=== PATIENT | female | born 1995 | race Caucasian/White ===

== ENCOUNTER 2017-02-19 10:44 | Emergency (ER) | payer SELFPAY ==
[2017-02-19] MEDS ORDERED: CLINDAMYCIN 150 MG CAP PO ONE (11:19)
[2017-02-19] MEDS ORDERED: IBUPROFEN 600 MG TABLET PO ONE (11:19)
--- NOTE | 2017-02-19 11:19 | Emergency Department Record ---
History of Present Illness - General Chief complaint: Abscess Stated complaint: BOIL IN ARM PIT AREA Time Seen by Provider: 02/19/17 11:11 Source: Patient Mode of Arrival: Ambulatory Limitations: No limitations - History of Present Illness Initial comments: 21 yo female presents with a tender swollen area in the axilla for one week. She has had prior abscess in the past. No fevers or chills. No drainage yet. No known history of MRSA. No other active abscesses currently. MD complaint: Abscess/boil Onset/Timin -: Week(s) Severity: Moderate Severity scale (1-10): 7 Quality: Sharp Consistency: Constant Improves with: None Worsens with: Palpation Context: None Associated symptoms: Denies other symptoms Treatments Prior to Arrival: None - Related Data Previous Rx's Medication Instructions Recorded Clindamycin Palmitate HCl [Cleocin 300 mg PO TID #180 ml 02/19/17 Palmitate] Hydrocodone/APAP Elixir [[place] 7.5 ml PO TID PRN #70 ml 02/19/17 7.5mg/325mg/15ml] Allergies Allergy/AdvReac Type Severity Reaction Status Date / Time cefdinir [From Omnicef] Allergy HIVES Verified 02/19/17 10:57 Travel Screening - Travel/Exposure Within Last 30 Days Have you traveled within the last 30 days?: No Review of Systems Constitutional: Denies: Chills, Fever, Malaise, Weakness Eyes: Denies: Eye discharge ENT: Denies: Congestion, Throat pain Respiratory: Denies: Cough, Dyspnea, Hemoptysis, Stridor, Wheezes Cardiovascular: Denies: Chest pain, Palpitations, Syncope Gastrointestinal: Denies: Abdominal pain, Nausea, Vomiting Genitourinary: Denies: Dysuria, Urgency Musculoskeletal: Denies: Arthralgia, Back pain, Joint swelling, Myalgia Skin: Reports: As per HPI, Change in color, Lesions. Denies: Bruising Neurological: Denies: Confusion, Headache Psychiatric: Denies: Anxiety Hematological/Lymphatic: Denies: Easy bleeding, Easy bruising, Swollen glands Past Medical History - SOCIAL HISTORY Smoking Status: Current every day smoker Alcohol Use: Occassional Drug Use: None - RESPIRATORY Hx Respiratory Disorders: No - CARDIOVASCULAR Hx Cardio Disorders: No - NEURO Hx Neuro Disorders: No - GI Hx GI Disorders: No - Hx Genitourinary Disorders: No - ENDOCRINE Hx Endocrine Disorders: No - MUSCULOSKELETAL Hx Musculoskeletal Disorders: No - PSYCH Hx Psych Problems: No - HEMATOLOGY/ONCOLOGY Hx Hematology/Oncology Disorders: No Family Medical History Any Significant Family History?: No Physical Exam - General General Appearance: Alert, Oriented x3, Cooperative, No acute distress Limitations: No limitations - Head Head exam: Normal inspection - Eye Eye exam: Normal appearance - ENT ENT exam: Normal exam Ear exam: Normal external inspection Nasal Exam: Normal inspection - Neck Neck exam: Normal inspection - Respiratory Respiratory exam: Normal lung sounds bilaterally. negative: Respiratory distress - Cardiovascular Cardiovascular Exam: Regular rate, Normal rhythm, Normal heart sounds - GI/Abdominal GI/Abdominal exam: negative: Tenderness - Rectal Rectal exam: Deferred - exam: Deferred - Extremities Extremities exam: Full ROM. negative: Normal inspection, Joint swelling Image of Full Body: 1 - 3cm abscess with surrounding erythema about 10cm below axilla, mild axilla erythema without abscesses or tenderness - Back Back exam: Reports: Normal inspection - Neurological Neurological exam: Alert, Normal gait, Oriented X3 - Psychiatric Psychiatric exam: Normal affect, Normal mood - Skin Skin exam: Erythema Type of lesion: Abscess Course Vital Signs 02/19/17 10:53 Temperature 98.3 F Pulse Rate 93 H Respiratory 18 Rate Blood Pressure 142/66 Pulse Ox 100 - Reevaluation(s) Reevaluation #1: The patient has an abscess below the axilla I recommended drainage. She has had this prior and is aware of benefits and risks She agrees Given the surrounding erythema Clindamycin provided as well. Procedure: I and D of superficial abscess Betadine prep Lidocaine 1% with Epi 3ml 11 blade 1cm incision Pus expressed. Culture obtained The loculations were broken The pus was expressed until resolved The cavity irrigated 1/4 inch drain placed with dressing Tolerated well DC to return in 48 hours. 02/19/17 11:21 Disposition Disposition: Discharge Clinical Impression: Cutaneous abscess Qualifiers: Site of cutaneous abscess: other site Qualified Code(s): L02.818 - Cutaneous abscess of other sites Disposition: Home, Self-Care Condition: (1) Good Instructions: Abscess Incision and Drainage (ED), Abscess (ED) Additional Instructions: Return if you have fever, uncontrolled pain, or any new concerns Take the Clindamycin as directed Prescriptions: Clindamycin Palmitate HCl [Cleocin Palmitate] 300 mg PO TID #180 ml Hydrocodone/APAP Elixir [[place] 7.5mg/325mg/15ml] 7.5 ml PO TID PRN #70 ml PRN Reason: Pain - General Forms: Patient Portal Access Time of Disposition: 11:40
== END 2017-02-19 11:50 | disposition home or self-care (01) ==
LOC: ER 10:44
DX: L03.112 Cellulitis of left axilla (principal)
CPT/HCPCS: 10060; 99284

== ENCOUNTER 2017-02-21 18:30 | Emergency (ER) | payer MEDICAID ==
--- NOTE | 2017-02-21 19:18 | Emergency Department Record ---
History of Present Illness - General Chief Complaint: Wound, check Stated Complaint: RE-CHECK/DRAIN REMOVAL Time Seen by Provider: 02/21/17 19:16 Source: Patient Mode of arrival: Ambulatory Limitations: No limitations - History of Present Illness Initial Comments: 21 yo female presents to ED for re-evaluation of her previously drained cutaneous abscess of the left axilla 2 days ago. Patient reports that she was unable to fill her prescription for Clindamycin due to cost, denies fevers, chills, ore recent illness. Patient denies health problems at her baseline. MD Complaint: Wound re-check Onset/Timin -: Days(s) Initial Visit For: Abscess Returns Today for: Wound recheck Symptoms Since Prior Visit: No new symptoms Treatments Prior to Arrival: Given antibiotics on initial visit - Related Data Previous Rx's Medication Instructions Recorded Hydrocodone/APAP Elixir [[place] 7.5 ml PO TID PRN #70 ml 02/19/17 7.5mg/325mg/15ml] Sulfamethoxazole/Trimethoprim 1 each PO BID #20 tablet 02/21/17 [Bactrim Ds Tablet] Allergies Allergy/AdvReac Type Severity Reaction Status Date / Time cefdinir [From Omnicef] Allergy HIVES Verified 02/19/17 10:57 Review of Systems Constitutional: Denies: Chills, Fever, Malaise, Night sweats Eyes: Denies: Eye discharge, Eye pain ENT: Denies: Congestion, Ear pain, Epistaxis Respiratory: Denies: Cough, Dyspnea Cardiovascular: Denies: Chest pain, Dyspnea on exertion Endocrine: Denies: Fatigue, Heat or cold intolerance Gastrointestinal: Denies: Abdominal pain, Nausea, Vomiting Genitourinary: Denies: Dysuria, Frequency, Hematuria, Incontinence Musculoskeletal: Denies: Arthralgia, Back pain, Gout, Joint swelling Skin: Reports: Other (draining wound left axilla with packing in place). Denies : Bruising, Change in color, Change in hair/nails Neurological: Denies: Abnormal gait, Confusion, Headache, Seizure Psychiatric: Denies: Anxiety Hematological/Lymphatic: Denies: Anemia, Blood Clots Past Medical History - SOCIAL HISTORY Smoking Status: Current every day smoker Drug Use: None - RESPIRATORY Hx Respiratory Disorders: No - CARDIOVASCULAR Hx Cardio Disorders: No - NEURO Hx Neuro Disorders: No - GI Hx GI Disorders: No - Hx Genitourinary Disorders: No - ENDOCRINE Hx Endocrine Disorders: No - MUSCULOSKELETAL Hx Musculoskeletal Disorders: No - PSYCH Hx Psych Problems: No - HEMATOLOGY/ONCOLOGY Hx Hematology/Oncology Disorders: No Physical Exam - General General Appearance: Alert, Oriented x3, Cooperative, No acute distress Limitations: No limitations - Head Head exam: Atraumatic, Normocephalic, Normal inspection Head exam detail: negative: Abrasion, Contusion, Campbell's sign, General tenderness, Hematoma, Laceration - Eye Eye exam: Normal appearance. negative: Conjunctival injection, Periorbital swelling, Periorbital tenderness, Scleral icterus - ENT Ear exam: negative: Auricular hematoma, Auricular trauma Nasal Exam: negative: Active bleeding, Discharge, Dried blood, Foreign body Mouth exam: negative: Drooling, Laceration, Muffled voice, Tongue elevation Throat exam: Normal inspection. negative: Tonsillar erythema, Tonsillomegaly, R peritonsillar mass, L peritonsillar mass - Neck Neck exam: Normal inspection. negative: Meningismus, Tenderness - Respiratory Respiratory exam: Normal lung sounds bilaterally. negative: Rales, Respiratory distress, Rhonchi, Stridor - Cardiovascular Cardiovascular Exam: Regular rate, Normal rhythm, Normal heart sounds - GI/Abdominal GI/Abdominal exam: Soft. negative: Rebound, Rigid, Tenderness - Rectal Rectal exam: Deferred - exam: Deferred - Extremities Extremities exam: Normal inspection. negative: Pedal edema, Tenderness - Back Back exam: Denies: CVA tenderness (R), CVA tenderness (L) - Neurological Neurological exam: Alert, Normal gait, Oriented X3 - Psychiatric Psychiatric exam: Normal affect, Normal mood - Skin Skin exam: Normal color, Other (Draining wound to the left chest wall just infrior to the axilla). negative: Abrasion Type of lesion: negative: abrasion Course - Reevaluation(s) Reevaluation #1: 02/21/17 19:22 Packing removed from the wound, no surrounding erythema, induration, or residual fluctuance is present on examination. Patient appears stable for discharge on Bactrim for her symptoms. Patient understands all instructions and appears stable for discharge at this time. Disposition Disposition: Discharge Clinical Impression: Abscess of skin Qualifiers: Site of cutaneous abscess: trunk Site of cutaneous abscess of trunk: unspecified site Qualified Code(s): L02.219 - Cutaneous abscess of trunk, unspecified Disposition: Home, Self-Care Condition: (2) Stable Instructions: Abscess (ED), Abscess Incision and Drainage (ED) Additional Instructions: Return to ED if your symptoms worsen or if you have any concern. Bactrim as directed. Follow-up with your family doctor in 3-5 days as directed. Prescriptions: Sulfamethoxazole/Trimethoprim [Bactrim Ds Tablet] 1 each PO BID #20 tablet Forms: Patient Portal Access Time of Disposition: 19:18
[2017-02-21] MEDS ORDERED: TMP/SMZ 160MG/800MG TAB PO ONE (19:27)
== END 2017-02-21 19:37 | disposition home or self-care (01) ==
LOC: ER 18:30
DX: L03.112 Cellulitis of left axilla (principal)
CPT/HCPCS: 99282

== ENCOUNTER 2017-03-16 10:48 | Emergency (ER) | payer MEDICAID ==
[2017-03-16 11:39] LABS: BASO % 0.4 % (0-6); EOS % 2.7 % (0-6); GRAN % 63.3 % (47-80); HEMATOCRIT 40.5 % (35.0-47.0); HEMOGLOBIN 13.1 gm/dl (11.6-16.0); LYMPH % 25.8 % (16-45); MEAN CELL VOLUME 87.5 fl (81-97); MEAN CORPUSCULAR HEMOGLOBIN 28.3 pg (27-33); MEAN CORPUSCULAR HGB CONC 32.3 g/dl (32-36); MEAN PLATELET VOLUME 10.4 fl (7.4-10.4); MONO % 7.8 % (0-9); PLATELET COUNT 211 K/uL (130-400); RED BLOOD COUNT 4.63 M/uL (3.80-5.40); RED CELL DISTRIBUTION WIDTH 13.5 % (11.5-14.5); WHITE BLOOD COUNT W/O DIFF 5.6 K/uL (4.2-12.2)
[2017-03-16 11:40] LABS: URINE APPEARANCE CLEAR; URINE BILIRUBIN NEGATIVE (NEGATIVE); URINE BLOOD TRACE-I (NEGATIVE); URINE COLOR YELLOW; URINE GLUCOSE (UA) NEGATIVE (NEGATIVE); URINE KETONE NEGATIVE (NEGATIVE); URINE LEUKOCYTE ESTERASE SMALL (NEGATIVE); URINE NITRITE NEGATIVE (NEGATIVE); URINE PROTEIN NEGATIVE (NEGATIVE); URINE UROBILINOGEN 0.2 E.U./dL (0.20 - 1.00)
--- NOTE | 2017-03-16 11:40 | Emergency Department Record ---
History of Present Illness - General Chief Complaint: Abdominal Pain Stated Complaint: ABD PAIN Time Seen by Provider: 03/16/17 11:06 Source: Patient Mode of Arrival: Ambulatory Limitations: No limitations - History of Present Illness Initial Comments: pt c/o nausea and cramping for 3 days. pt doesnt know when her lmp was. she states they are irregular. MD Complaint: Abdominal pain Onset/Timin -: Days(s) Location: LLQ, RLQ Radiation: Back Quality: Cramping Consistency: Intermittent Improves With: Nothing Worsens With: Nothing Associated Symptoms: Nausea - Related Data LMP (females 10-50): Unknown Patient : (unsure) Previous Rx's Medication Instructions Recorded Sulfamethoxazole/Trimethoprim 1 each PO BID #6 tablet 03/16/17 [Bactrim Ds Tablet] Allergies Allergy/AdvReac Type Severity Reaction Status Date / Time cefdinir [From Omnicef] Allergy Severe HIVES Verified 03/16/17 10:58 Travel Screening - Travel/Exposure Within Last 30 Days Have you traveled within the last 30 days?: No Review of Systems Reviewed: No additional complaints except as noted below Constitutional: Reports: As per HPI. Denies: Chills, Fever, Malaise, Night sweats, Weakness, Weight change Eyes: Reports: As per HPI. Denies: Eye discharge, Eye pain, Photophobia, Vision change ENT: Reports: As per HPI. Denies: Congestion, Dental pain, Ear pain, Epistaxis , Hearing loss, Throat pain Respiratory: Reports: As per HPI. Denies: Cough, Dyspnea, Hemoptysis, Stridor, Wheezes Cardiovascular: Reports: As per HPI. Denies: Arrhythmia, Chest pain, Dyspnea on exertion, Edema, Murmurs, Orthopnea, Palpitations, Paroxysmal nocturnal dyspnea, Rheumatic Fever, Syncope Endocrine: Reports: As per HPI. Denies: Fatigue, Heat or cold intolerance, Polydipsia, Polyuria Gastrointestinal: Reports: As per HPI. Denies: Abdominal pain, Constipation, Diarrhea, Hematemesis, Hematochezia, Melena, Nausea, Vomiting Genitourinary: Reports: As per HPI. Denies: Abnormal menses, Discharge, Dyspareunia, Dysuria, Frequency, Hematuria, Incontinence, Retention, Urgency Musculoskeletal: Reports: As per HPI. Denies: Arthralgia, Back pain, Gout, Joint swelling, Myalgia, Neck pain Skin: Reports: As per HPI. Denies: Bruising, Change in color, Change in hair/ nails, Lesions, Pruritus, Rash Neurological: Reports: As per HPI. Denies: Abnormal gait, Confusion, Headache, Numbness, Paresthesias, Seizure, Tingling, Tremors, Vertigo, Weakness Psychiatric: Reports: As per HPI. Denies: Anxiety, Auditory hallucinations, Depression, Homicidal thoughts, Suicidal thoughts, Visual hallucinations Hematological/Lymphatic: Reports: As per HPI. Denies: Anemia, Blood Clots, Easy bleeding, Easy bruising, Swollen glands Past Medical History - SOCIAL HISTORY Smoking Status: Current every day smoker Alcohol Use: Rare Drug Use: None - RESPIRATORY Hx Respiratory Disorders: No - CARDIOVASCULAR Hx Cardio Disorders: No - NEURO Hx Neuro Disorders: No - GI Hx GI Disorders: No - Hx Genitourinary Disorders: No - ENDOCRINE Hx Endocrine Disorders: No - MUSCULOSKELETAL Hx Musculoskeletal Disorders: No - PSYCH Hx Psych Problems: No - HEMATOLOGY/ONCOLOGY Hx Hematology/Oncology Disorders: No Family Medical History Any Significant Family History?: No Physical Exam - General General Appearance: Alert, Oriented x3, Cooperative, Mild distress - Head Head exam: Normal inspection - Eye Eye exam: Normal appearance, PERRL, EOMI Pupils: Normal accommodation - ENT ENT exam: Normal exam, Mucous membranes moist, Normal external ear exam, Normal orophraynx Ear exam: Normal external inspection. negative: External canal tenderness Nasal Exam: Normal inspection. negative: Discharge, Sinus tenderness Mouth exam: Normal external inspection, Tongue normal Teeth exam: Normal inspection. negative: Dental caries Throat exam: Normal inspection. negative: Tonsillar erythema, Tonsillar exudate - Neck Neck exam: Normal inspection, Full ROM. negative: Tenderness - Respiratory Respiratory exam: Normal lung sounds bilaterally. negative: Respiratory distress - Cardiovascular Cardiovascular Exam: Regular rate, Normal rhythm, Normal heart sounds - GI/Abdominal GI/Abdominal exam: Soft, Normal bowel sounds, Tenderness (rlq) - Rectal Rectal exam: Deferred - exam: Deferred - Extremities Extremities exam: Normal inspection, Full ROM, Normal capillary refill. negative: Tenderness - Back Back exam: Reports: Normal inspection, Full ROM. Denies: Muscle spasm, Rash noted, Tenderness - Neurological Neurological exam: Alert, CN II-XII intact, Normal gait, Oriented X3 - Psychiatric Psychiatric exam: Normal affect, Normal mood - Skin Skin exam: Dry, Intact, Normal color, Warm Course Vital Signs 03/16/17 10:52 Temperature 98.0 F Pulse Rate 95 H Respiratory 18 Rate Blood Pressure 128/79 Pulse Ox 99 - Reevaluation(s) Reevaluation #1: 03/16/17 12:[address] she states she is sure its just the uti. pt told she can return at any time Medical Decision Making - Data Complexity MDM Data: Labs Ordered and/or Reviewed, X-Ray Ordered and/or Reviewed - Lab Data Result diagrams: 03/16/17 11:35 03/16/17 11:35 - Radiology Data Radiology results: Report reviewed, Image reviewed Disposition Disposition: Discharge Clinical Impression: UTI (urinary tract infection) Qualifiers: Urinary tract infection type: acute cystitis Hematuria presence: without hematuria Qualified Code(s): N30.00 - Acute cystitis without hematuria Abdominal tenderness Qualifiers: Abdominal location: generalized Presence of rebound: absent Qualified Code(s): R10.817 - Generalized abdominal tenderness Disposition: Home, Self-Care Condition: (1) Good Instructions: Urinary Tract Infection in Women (ED) Additional Instructions: follow up with family doctor. return for recheck in 12 hours if still having right sided abd pain. return sooner if worse Prescriptions: Sulfamethoxazole/Trimethoprim [Bactrim Ds Tablet] 1 each PO BID #6 tablet Forms: Patient Portal Access
[2017-03-16 11:43] LABS: HCG,QUALITATIVE URINE NEGATIVE (NEGATIVE)
[2017-03-16 11:50] LABS: ALB/GLOB RATIO 1.5 (1.1-1.8); ALBUMIN 4.5 gm/dL (3.5-5.0); ALKALINE PHOSPHATASE 68 U/L (38-126); ALT/SGPT 34 U/L (9-52); ANION GAP 10.4 (7-16); AST/SGOT 27 U/L (14-36); BILIRUBIN,TOTAL 0.62 mg/dL (0.2-1.3); BLOOD UREA NITROGEN 13 mg/dL (7-17); CARBON DIOXIDE 25.6 mmol/L (22-30); CREATININE 0.7 mg/dL (0.52-1.04); EST GLOMERULAR FILTRATION RATE > 60 ml/min; GLUCOSE,RANDOM 83 mg/dL (70-110); TOTAL PROTEIN 7.5 gm/dL (6.3-8.2)
[2017-03-16 11:55] LABS: URINE BACTERIA FEW
[2017-03-16] MEDS ORDERED: ONDANSETRON HCL IV 4 MG/2 ML VIAL IVP ONE (12:05)
== END 2017-03-16 12:34 | disposition home or self-care (01) ==
LOC: ER 10:48
DX: N30.00 Acute cystitis without hematuria (principal); R10.817 Generalized abdominal tenderness; R11.0 Nausea
CPT/HCPCS: 80053; 81001; 81025; 85025; 99283

== ENCOUNTER 2017-03-18 13:13 | Emergency (ER) | payer MEDICAID ==
--- NOTE | 2017-03-18 13:45 | Emergency Department Record ---
History of Present Illness - General Chief complaint: Female Urogenital Problem Stated complaint: UTI Time Seen by Provider: 03/18/17 13:44 Source: Patient Mode of Arrival: Ambulatory Limitations: No limitations - History of Present Illness Initial comments: The patient is here due to a 7 hour history of nausea, vomiting, and loose stools. She states she was here in the ER 2 days ago and diagnosed with a UTI. She has not been able to fill her script and today since 7am has had numerous episodes of vomiting and diarrhea. She is having mild abdominal cramping but denies any vaginal issues. She is still having mild dysuria. MD Complaint: Other Onset/Timin -: Days(s) Location: Suprapubic Severity: Moderate Severity scale (1-10): 6 Quality: Cramping Consistency: Intermittent Improves with: None Worsens with: None Patient : No - Related Data Previous Rx's Medication Instructions Recorded Sulfamethoxazole/Trimethoprim 1 each PO BID #6 tablet 03/16/17 [Bactrim Ds Tablet] Ondansetron [Zofran Odt] 4 mg SL .Q4-6H PRN #12 tab.rapdis 03/18/17 Allergies Allergy/AdvReac Type Severity Reaction Status Date / Time cefdinir [From Omnicef] Allergy Severe HIVES Verified 03/18/17 13:35 Travel Screening - Travel/Exposure Within Last 30 Days Have you traveled within the last 30 days?: No - Travel/Exposure Within Last Year Have you traveled outside the [place] in the last year?: No - Additonal Travel Details Have you been exposed to anyone with a communicable illness?: No - Travel Symptoms Symptom Screening: None Review of Systems Constitutional: Denies: Chills, Fever Eyes: Denies: Eye discharge ENT: Denies: Congestion Respiratory: Denies: Cough, Dyspnea Past Medical History - SOCIAL HISTORY Smoking Status: Current every day smoker Alcohol Use: Rare Drug Use: None - RESPIRATORY Hx Respiratory Disorders: No - CARDIOVASCULAR Hx Cardio Disorders: No - NEURO Hx Neuro Disorders: No - GI Hx GI Disorders: No - Hx Genitourinary Disorders: No - ENDOCRINE Hx Endocrine Disorders: No - MUSCULOSKELETAL Hx Musculoskeletal Disorders: No - PSYCH Hx Psych Problems: No - HEMATOLOGY/ONCOLOGY Hx Hematology/Oncology Disorders: No Family Medical History Any Significant Family History?: No Physical Exam - General General Appearance: Alert, Oriented x3, Cooperative, No acute distress - Head Head exam: Atraumatic, Normocephalic, Normal inspection - Eye Eye exam: Normal appearance, PERRL - Neck Neck exam: Normal inspection, Full ROM. negative: Tenderness - Respiratory Respiratory exam: Normal lung sounds bilaterally. negative: Respiratory distress - Cardiovascular Cardiovascular Exam: Regular rate, Normal rhythm, Normal heart sounds - GI/Abdominal GI/Abdominal exam: Soft, Normal bowel sounds. negative: Distended, Guarding, Rigid, Tenderness - Extremities Extremities exam: Normal inspection, Full ROM, Normal capillary refill. negative: Tenderness - Neurological Neurological exam: Alert, Normal gait, Oriented X3. negative: Abnormal gait, Motor sensory deficit - Psychiatric Psychiatric exam: negative: Anxious, Depressed Course Vital Signs 03/18/17 13:36 Temperature 98.9 F Pulse Rate 63 Respiratory 16 Rate Blood Pressure 120/83 Pulse Ox 97 - Reevaluation(s) Reevaluation #1: The patient is doing much better at this time. She denies any nausea, vomiting, diarrhea or abdominal pain. On exam her abdomen is very soft and nontender in all 4 quads. I did explain the results to the patient and the need for F/U. I also did discuss the need to perform a pelvic exam on the patient. The reasons I explained were to evaluate for an infection, STD, PID or BV. The patient understands the need for the test but states she would need a female doctor to perform it. She is refusing the test. I explained to her that by NOT doing the pelvic exam we could be missing and infection and she could get much sicker, have pain, fever, vomiting, and fertility issues. The patient understands and accepts the risks. 03/18/17 15:29 03/18/17 15:32 Medical Decision Making - Data Complexity MDM Data: Labs Ordered and/or Reviewed - Lab Data Result diagrams: 03/18/17 14:00 03/18/17 14:00 Disposition Disposition: Discharge Clinical Impression: Gastroenteritis Disposition: Home, Self-Care Condition: (1) Good Instructions: Gastroenteritis (ED) Additional Instructions: Please take your home Antibiotic as previously prescribed. Please use the Zofran for nausea. Please see your PCP tomorrow if not better. Return to the ER for any increased vomiting, diarrhea, any abdominal pain or fever. Prescriptions: Ondansetron [Zofran Odt] 4 mg SL .Q4-6H PRN #12 tab.rapdis PRN Reason: Nausea Forms: Patient Portal Access Time of Disposition: 15:34
[2017-03-18] MEDS ORDERED: ONDANSETRON HCL IV 4 MG/2 ML VIAL IV ONE (13:51)
[2017-03-18] MEDS ORDERED: 0.9 % SODIUM CHLORIDE 1,000 ML BAG IV ONE (13:51)
[2017-03-18 14:04] LABS: URINE APPEARANCE CLEAR; URINE BILIRUBIN SMALL (NEGATIVE); URINE BLOOD TRACE-I (NEGATIVE); URINE COLOR YELLOW; URINE GLUCOSE (UA) NEGATIVE (NEGATIVE); URINE KETONE 15 mg/dL (NEGATIVE); URINE LEUKOCYTE ESTERASE MODERATE (NEGATIVE); URINE NITRITE NEGATIVE (NEGATIVE); URINE UROBILINOGEN 0.2 E.U./dL (0.20 - 1.00)
[2017-03-18 14:06] LABS: BASO % 0.5 % (0-6); EOS % 1.5 % (0-6); GRAN % 66.7 % (47-80); HEMATOCRIT 42.8 % (35.0-47.0); HEMOGLOBIN 13.9 gm/dl (11.6-16.0); LYMPH % 25.9 % (16-45); MEAN CELL VOLUME 86.6 fl (81-97); MEAN CORPUSCULAR HEMOGLOBIN 28.1 pg (27-33); MEAN CORPUSCULAR HGB CONC 32.5 g/dl (32-36); MEAN PLATELET VOLUME 10.2 fl (7.4-10.4); MONO % 5.4 % (0-9); PLATELET COUNT 233 K/uL (130-400); RED BLOOD COUNT 4.94 M/uL (3.80-5.40); RED CELL DISTRIBUTION WIDTH 13.5 % (11.5-14.5); WHITE BLOOD COUNT W/O DIFF 8.5 K/uL (4.2-12.2)
[2017-03-18 14:14] LABS: URINE WBC 36 - 50 (0-2/hpf)
[2017-03-18 14:15] LABS: HCG,QUALITATIVE URINE NEGATIVE (NEGATIVE); URINE BACTERIA FEW; URINE EPITHELIAL CELLS 16 - 20 (FEW)
[2017-03-18 14:18] LABS: ALB/GLOB RATIO 1.6 (1.1-1.8); ALBUMIN 4.9 gm/dL (3.5-5.0); ALKALINE PHOSPHATASE 75 U/L (38-126); ALT/SGPT 30 U/L (9-52); ANION GAP 13.1 (7-16); AST/SGOT 27 U/L (14-36); BILIRUBIN,TOTAL 0.75 mg/dL (0.2-1.3); BLOOD UREA NITROGEN 15 mg/dL (7-17); CARBON DIOXIDE 23.9 mmol/L (22-30); CREATININE 0.8 mg/dL (0.52-1.04); EST GLOMERULAR FILTRATION RATE > 60 ml/min; GLUCOSE,RANDOM 83 mg/dL (70-110); LIPASE 40 U/L (23-300)
== END 2017-03-18 15:45 | disposition home or self-care (01) ==
LOC: ER 13:13
DX: K52.9 Noninfective gastroenteritis and colitis, unspecified (principal); R10.30 Lower abdominal pain, unspecified; R11.2 Nausea with vomiting, unspecified; R30.0 Dysuria
CPT/HCPCS: 99284 ×2; 96374; 83690; 85025; 80053; 81001; 81025; J2405; J7030